=== PATIENT | male | born 1950 ===

== ENCOUNTER 2016-09-13 16:00 | Observation (INO) | payer OTHER ==
[2016-09-13 17:16] LABS: Glucose,Whole Blood 103 mg/dL (75-99)
[2016-09-13 17:44] LABS: Basophils % (A) 0 %; CH 29.8; CHCM 33.7; Eosinophils % (A) 0 %; HCT 44.5 % (39.0-53.0); HDW 2.55; HGB 14.7 gm/dL (13.0-17.5); Luc # (Auto) 0.11; Luc % (Auto) 2; Lymphocytes # (A) 1.3 k/uL (1.0-4.8); Lymphocytes % (A) 21 %; MCH 29.3 pg (25.0-35.0); MCHC 32.9 g/dL (31.0-37.0); MCV 88.9 fL (80.0-100.0); Mean Platelet Volume 9.2; Monocytes # (A) 0.3 k/uL (0-1.0); Monocytes % (A) 4 %; Neutrophils # (A) 4.4 k/uL (1.3-7.7); Neutrophils % (A) 73 %; RBC 5.01 m/uL (4.30-5.90); RDW 14.7 % (11.5-15.5); WBC 6.1 k/uL (3.8-10.6); WBC (Perox) 6.52
[2016-09-13 17:54] LABS: ALT 37 U/L (21-72); AST 20 U/L (17-59); Alkaline Phosphatase 87 U/L (38-126); Anion Gap 13 mmol/L; Blood Urea Nitrogen 13 mg/dL (9-20); Calcium 9.2 mg/dL (8.4-10.2); Carbon Dioxide 23 mmol/L (22-30); Chloride 104 mmol/L (98-107); Glucose 109 mg/dL (74-99); Non-African American GFR(MDRD) >60 (>60 ml/min/1.73 sqM); Potassium 4.2 mmol/L (3.5-5.1); Sodium 140 mmol/L (137-145); Total Protein 6.8 g/dL (6.3-8.2)
[2016-09-13] MEDS ORDERED: 0.9% NACL WITH KCL 20 MEQ/L 1,000 ML IV SCH (18:00)
[2016-09-13] MEDS ORDERED: ENOXAPARIN 40 MG/0.4 ML SYRINGE SQ STA (18:04)
[2016-09-13 18:06] LABS: Creatine Kinase 69 U/L (55-170)
[2016-09-13] MEDS ORDERED: ACETAMINOPHEN TAB 325 MG TAB PO PRN (18:12)
[2016-09-13 18:19] LABS: Creatine Kinase MB 0.4 ng/mL (0.0-2.4); Troponin I <0.012 ng/mL (0.000-0.034)
[2016-09-13] MEDS: HYDROcodone/APAP 5-325MG 1 EACH TAB PO PRN (19:03)
[2016-09-13] MEDS ORDERED: LIDOCAINE 4% CREAM 5 GM TUBE TOPICAL PRN (20:25)
[2016-09-13 20:51] LABS: Glucose,Whole Blood 106 mg/dL (75-99)
[2016-09-13] MEDS: ACYCLOVIR 800 MG TAB PO SCH (21:34)
[2016-09-13] MEDS ORDERED: TEMAZEPAM 15 MG CAP PO PRN (21:54)
[2016-09-13] MEDS ORDERED: ALPRAZolam 0.25 MG TAB PO PRN (21:54)
[2016-09-13] MEDS ORDERED: HYDROcodone/APAP 5-325MG 1 EACH TAB PO PRN (21:54)
[2016-09-13 23:34] LABS: Creatine Kinase 71 U/L (55-170)
[2016-09-13 23:47] LABS: Creatine Kinase MB 0.4 ng/mL (0.0-2.4); Troponin I <0.012 ng/mL (0.000-0.034)
[2016-09-14] MEDS: ACYCLOVIR 800 MG TAB PO SCH ×4 (00:33→15:25)
[2016-09-14] MEDS: HYDROcodone/APAP 5-325MG 1 EACH TAB PO PRN ×3 (00:34→11:49)
[2016-09-14 05:43] LABS: Basophils % (A) 1 %; CHCM 33.8; Eosinophils # (A) 0.1 k/uL (0-0.7); Eosinophils % (A) 2 %; HCT 40.5 % (39.0-53.0); HDW 2.52; HGB 13.3 gm/dL (13.0-17.5); Luc # (Auto) 0.16; Luc % (Auto) 3; Lymphocytes # (A) 1.8 k/uL (1.0-4.8); Lymphocytes % (A) 36 %; MCH 29.4 pg (25.0-35.0); MCHC 32.9 g/dL (31.0-37.0); MCV 89.2 fL (80.0-100.0); Mean Platelet Volume 10.1; Monocytes # (A) 0.3 k/uL (0-1.0); Monocytes % (A) 6 %; Neutrophils # (A) 2.7 k/uL (1.3-7.7); Neutrophils % (A) 53 %; RBC 4.54 m/uL (4.30-5.90); RDW 14.7 % (11.5-15.5); WBC 5.1 k/uL (3.8-10.6); WBC (Perox) 5.41
[2016-09-14 06:04] LABS: ALT 30 U/L (21-72); AST 34 U/L (17-59); Alkaline Phosphatase 73 U/L (38-126); Anion Gap 7 mmol/L; Blood Urea Nitrogen 14 mg/dL (9-20); Calcium 8.9 mg/dL (8.4-10.2); Carbon Dioxide 26 mmol/L (22-30); Chloride 106 mmol/L (98-107); Glucose 93 mg/dL (74-99); Non-African American GFR(MDRD) >60 (>60 ml/min/1.73 sqM); Potassium 4.4 mmol/L (3.5-5.1); Sodium 139 mmol/L (137-145); Total Bilirubin 0.9 mg/dL (0.2-1.3)
[2016-09-14 06:07] LABS: Creatine Kinase 83 U/L (55-170)
[2016-09-14 06:19] LABS: Creatine Kinase MB 0.4 ng/mL (0.0-2.4); Troponin I <0.012 ng/mL (0.000-0.034)
[2016-09-14 06:42] LABS: Glucose,Whole Blood 86 mg/dL (75-99)
[2016-09-14] MEDS ORDERED: PANTOPRAZOLE 40 MG TABLET PO SCH (07:30)
[2016-09-14 08:53] VITALS: RESP 16
[2016-09-14] MEDS ORDERED: ENOXAPARIN 40 MG/0.4 ML SYRINGE SQ SCH (09:00)
--- NOTE | 2016-09-14 09:22 | HP ---
The chief complaints are chest pain. HISTORY OF PRESENT ILLNESS: A 65-year-old gentleman with the past medical history of multiple medical problems including history of GERD, sleep apnea, history of disc surgery, being followed by primary physician in [place], also include camping in [place]. The patient was transferred to [facility] with complaints of chest pain. The pain was mainly in the left side of the chest and also radiating to the upper part of the abdomen. The patient also had shingles on the left side of the chest, especially in the back. There no history of fever, rigors or chills. No history of headache, loss of consciousness. The patient's home base is [place]. PAST MEDICAL HISTORY: History of GERD, sleep apnea, history of disc surgery. Medications prior to admission are none. FAMILY HISTORY: History of myocardial infarction in the family. SOCIAL HISTORY: No history of smoking, no history of alcohol intake. REVIEW OF SYSTEMS: ENT: No diminished hearing or diminished vision. CARDIOVASCULAR SYSTEM: As mentioned earlier. GI: No nausea. : No dysuria. NERVOUS SYSTEM: No numbness or weakness. ALLERGY/IMMUNOLOGY: No asthma or hayfever. MUSCULOSKELETAL: As mentioned earlier. ENDOCRINE: Negative. CONSTITUTIONAL: Negative. DERMATOLOGY: As mentioned earlier. RHEUMATOLOGY: Negative. PSYCHIATRY: Negative. PHYSICAL EXAM: Patient alert and oriented x3. Pulse is 88, blood pressure 160/82, respiration 16, temperature 97.4, pulse ox 98% on room air. HEENT: Conjunctivae normal. NECK: No jugular venous distension. RESPIRATORY: Breath sounds diminished at the bases, no rhonchi, no crackles. ABDOMEN: Soft, nontender, no mass palpable. LEGS: No edema, no swelling. NERVOUS SYSTEM: Higher functions as mentioned, moves all 4 limbs, no focal motor deficits. LYMPHATICS: No lymph node enlargement in the neck, groin or axillae. SKIN: Herpes zoster rash at D5-6. The labs are WBC 6.1, platelets 148, troponins negative. Glucose 109. IMPRESSION: 1. Left-sided chest pain, rule out myocardial infarction, coronary artery disease. 2. Left-sided herpes zoster D6-7. 3. Mild thrombocytopenia. 4. Increased random blood sugar. 6 History of gastroesophageal reflux disease. 7. Sleep apnea. 8. History of ruptured disc. 9. Family history of coronary artery disease. 10. History of back surgery and degenerative joint disease. 11. FULL CODE. RECOMMENDATION: In this 65-year-old gentleman who presented with multiple complex medical issues, will monitor the patient closely, continue with the current medication and symptomatic treatment. Otherwise, at this time I would recommend continue with the iron sulfate protocol. Otherwise, Cardiology consultation, n.p.o. past midnight. Pain medications, prognosis guarded because of multiple complex medical issues. Further recommendations to follow. See orders for further details. Possible stress test. Repeat labs will be ordered in the morning. Discussed with the patient and understands and agrees. SPENCER
--- NOTE | 2016-09-14 09:45 | XR ---
EXAMINATION TYPE: XR chest 1V DATE OF EXAM: 09/14/2016 COMPARISON: NONE HISTORY: Chest pain TECHNIQUE: Single frontal view of the chest is obtained. FINDINGS: There is no focal air space opacity, pleural effusion, or pneumothorax seen. The cardiac silhouette size is within normal limits. The osseous structures are intact. IMPRESSION: No acute cardiopulmonary process.
--- NOTE | 2016-09-14 10:36 | P.CRDCN ---
History of Present Illness Consult date: 09/14/16 Requesting physician: Sukhwinder Jones Consult reason: chest pain Chief complaint: Chest pain History of present illness: This is a 65-year-old gentleman with no prior documented history of hypertension no hyperlipidemia no diabetes, nonsmoker, no family history of premature coronary artery disease, history of GERD, sleep apnea who was transferred here from [facility]. Patient actually lives in [place] and is here camping in [place]. Patient had apparently presented there with symptoms of left-sided chest pain which radiated around to his back area. Patient was diagnosed there with shingles, he was transferred here to [facility] for further cardiac evaluation. Patient does state that he had the shingles vaccine 4 years ago. EKG this morning shows a normal sinus rhythm with no acute changes. WBC 5.1, hemoglobin 13.3, platelet count 119. Potassium 4.4, BUN 14, creatinine 1.1. Troponins have been negative 3. Blood pressure on arrival here 166/80 with a heart rate in the 80s, 98% on room air. Chest x-ray does not reveal any acute cardiopulmonary process. Time of my examination this morning, patient is complaining of pain in the left chest area with radiation around to the back, in the same area where the herpes zoster's rash is noted. Past Medical History Past Medical History: GERD/Reflux, Sleep Apnea/CPAP/BIPAP Additional Past Medical History / Comment(s): ruputerd disc, no cpap machine- insurance did'nt pay for it.shingles(currently) History of Any Multi-Drug Resistant Organisms: None Reported Past Surgical History: Back Surgery Additional Past Surgical History / Comment(s): back sx-l5 d/t ruptured dics, 1971, reconstructive sx lt shoulder d/t rugby accident.rt knee torn acl repair then 2nd sx , lt rotator cuff, egd, barium swallow. Past Anesthesia/Blood Transfusion Reactions: Motion Sickness Smoking Status: Never smoker - Past Family History Mother Family Medical History: Myocardial Infarction (ND) Father Family Medical History: Coronary Artery Disease (CAD) Additional Family Medical History / Comment(s): 5 vessel cabg, prostate cancer and prostate cancer. Medications and Allergies Home Medications Medication Instructions Recorded Confirmed Type No Known Home Medications [No 09/13/16 09/13/16 History Known Home Medications] Allergies Allergy/AdvReac Type Severity Reaction Status Date / Time No Known Allergies Allergy Verified 09/13/16 17:17 Physical Exam Vitals: Vital Signs Temp Pulse Pulse Pulse Resp BP Pulse Ox 09/14/16 08:00 97 F L 68 16 129/77 97 09/14/16 04:00 97.1 F L 68 68 18 142/79 98 09/14/16 00:00 97.3 F L 65 65 17 139/74 97 09/13/16 20:00 97.1 F L 83 83 18 132/82 94 L 09/13/16 16:00 97.4 F L 88 16 166/80 98 Intake and Output 09/13/16 09/14/16 09/14/16 22:59 06:59 14:59 Intake Total 236 540 Output Total 600 Balance -364 540 Intake: Intake, IV Titration 300 Amount 0.9% NaCl with KCl 20 Meq 300 /l 1,000 ml @ 50 mls/hr IV .Q20H VERONICA Rx#: [id number] Oral 236 240 Output: Urine 600 Other: # Voids 2 Weight 102.5 kg 102.6 kg PHYSICAL EXAMINATION: HEENT: Head is atraumatic, normocephalic. Pupils equal, round. Neck is supple. There is no elevated jugular venous pressure. HEART EXAMINATION: Heart S1, S2 normal. No murmur or gallop heard. CHEST EXAMINATION: Lungs are clear to auscultation and precussion. No chest wall tenderness is noted on palpation or with deep breathing. ABDOMEN: Soft, nontender. Bowel sounds are heard. No organomegaly noted. EXTREMITIES: 2+ peripheral pulses with no evidence of peripheral edema and no calf tenderness noted. NEUROLOGIC patient is awake, alert and oriented -3. Herpes zoster rash noted at the left chest and left posterior back area . Results 09/14/16 05:33 09/14/16 05:33 Cardiac Enzymes 09/13/16 09/13/16 09/13/16 Range/Units 17:31 17:31 23:01 AST 20 (17-59) U/L CK-MB (CK-2) 0.4 0.4 (0.0-2.4) ng/mL Troponin I <0.012 <0.012 (0.000-0.034) ng/mL 09/14/16 09/14/16 Range/Units 05:33 05:33 AST 34 (17-59) U/L CK-MB (CK-2) 0.4 (0.0-2.4) ng/mL Troponin I <0.012 (0.000-0.034) ng/mL CBC 09/13/16 09/14/16 Range/Units 17:31 05:33 WBC 6.1 5.1 (3.8-10.6) k/uL RBC 5.01 4.54 (4.30-5.90) m/uL Hgb 14.7 13.3 (13.0-17.5) gm/dL Hct 44.5 40.5 (39.0-53.0) % Plt Count 148 L 119 L (150-450) k/uL Comprehensive Metabolic Panel 09/13/16 09/14/16 Range/Units 17:31 05:33 Sodium 140 139 (137-145) mmol/L Potassium 4.2 4.4 (3.5-5.1) mmol/L Chloride 104 106 (98-107) mmol/L Carbon Dioxide 23 26 (22-30) mmol/L BUN 13 14 (9-20) mg/dL Creatinine 1.00 1.12 (0.66-1.25) mg/dL Glucose 109 H 93 (74-99) mg/dL Calcium 9.2 8.9 (8.4-10.2) mg/dL AST 20 34 (17-59) U/L ALT 37 30 (21-72) U/L Alkaline Phosphatase 87 73 (38-126) U/L Total Protein 6.8 6.0 L (6.3-8.2) g/dL Albumin 4.2 3.7 (3.5-5.0) g/dL Current Medications Generic Name Dose Route Start Last Admin Trade Name Freq PRN Reason Stop Dose Admin Acetaminophen 650 mg 09/13/16 18:12 Tylenol Tab PO Q4HR PRN Fever and/ or MILD Pain Hydrocodone Bitart/Acetaminophen 1 each 09/13/16 18:13 09/14/16 06:20 [place] 5-325 PO 1 each Q6HR PRN Administration MODERATE Pain Hydrocodone Bitart/Acetaminophen 1 each 09/13/16 21:54 [place] 5-325 PO Q6HR PRN Pain Acyclovir 800 mg 09/13/16 20:00 09/14/16 06:19 Zovirax PO 800 mg 5XD VERONICA Administration Alprazolam 0.25 mg 09/13/16 21:54 09/14/16 00:33 Xanax PO 0.25 mg TID PRN Administration Anxiety Enoxaparin Sodium 40 mg 09/14/16 09:00 09/14/16 08:06 Lovenox SQ 40 mg DAILY VERONICA Administration Potassium Chloride/Sodium Chloride 1,000 mls @ 50 mls/hr 09/13/16 18:00 09/13 17:32 Ns-Kcl 20 Meq/L Iv Solution IV 50 mls/hr .Q20H VERONICA Administration Lidocaine HCl 1 applic 09/13/16 20:25 09/14/16 00:34 Lmx 4 TOPICAL 1 applic Q6HR PRN Administration Pain Pantoprazole Sodium 40 mg 09/14/16 07:30 09/14/16 06:20 Protonix PO 40 mg AC-[id number] VERONICA Administration Temazepam 15 mg 09/13/16 21:54 Restoril PO HS PRN Insomnia Intake and Output 09/13/16 09/14/16 09/14/16 22:59 06:59 14:59 Intake Total 236 540 Output Total 600 Balance -364 540 Intake: Intake, IV Titration 300 Amount 0.9% NaCl with KCl 20 Meq 300 /l 1,000 ml @ 50 mls/hr IV .Q20H VERONICA Rx#: [id number] Oral 236 240 Output: Urine 600 Other: # Voids 2 Weight 102.5 kg 102.6 kg 09/14/16 05:33 09/14/16 05:33 EKG Interpretations (text) EKG shows normal sinus rhythm with no acute changes. Assessment and Plan Plan: Assessment and plan #1 symptoms of left-sided chest pain with radiation to the back. Evidence of herpes zoster rash. Patient currently on treatment for shingles. Troponins negative 3. EKG shows normal sinus rhythm with nonspecific changes in the inferior leads. #2 cardiac risk factors negative for hypertension, no diabetes, no hyperlipidemia, patient is a nonsmoker. #3 GERD Plan We will request an echocardiogram with Doppler study be performed. We will also discontinue the Lanoxin.. Patient's pain seems to be centrally located in the same area as shingles, if echo is normal would recommend outpatient stress testing. Further recommendations to follow. DNP note has been reviewed, I agree with a documented findings and plan of care. Patient was seen and examined.
[2016-09-14 11:26] LABS: Glucose,Whole Blood 95 mg/dL (75-99)
--- NOTE | 2016-09-14 12:57 | ECHOF ---
Referral Reason:chest pain MEASUREMENTS -------- HEIGHT: 182.9 cm WEIGHT: 102.5 kg BP: 129/77 IVSd: 1.2 cm (0.6 - 1.1) LVIDd: 4.0 cm (3.9 - 5.3) LVPWd: 1.0 cm (0.6 - 1.1) IVSs: 1.2 cm LVIDs: 3.1 cm LVPWs: 1.4 cm LA Diam: 3.5 cm (2.7 - 3.8) LAESV Index (A-L): 17.87 ml/m Ao Diam: 3.1 cm (2.0 - 3.7) AV Cusp: 1.8 cm (1.5 - 2.6) LA Diam: 3.7 cm (2.7 - 3.8) MV EXCURSION: 14.924 mm (> 18.000) MV EF SLOPE: 41 mm/s (70 - 150) EPSS: 1.0 cm MV E Wilfredo: 0.44 m/s MV DecT: 240 ms MV A Wilfredo: 0.80 m/s MV E/A Ratio: 0.55 RAP: 5.00 mmHg RVSP: 23.54 mmHg FINDINGS -------- Sinus rhythm. This was a technically adequate study. There is mild concentric left ventricular hypertrophy. Overall left ventricular systolic function is normal with, an EF between 55 - 60 %. The right ventricle is normal in size. Normal LA size by volume 22+/-6 ml/m2. The right atrial size is normal. There is mild aortic valve sclerosis. There is no evidence of aortic regurgitation. Mild mitral annular calcification present. Mild mitral regurgitation is present. Mild tricuspid regurgitation present. There is no evidence of pulmonary hypertension. The right ventricular systolic pressure, as measured by Doppler, is 23.54mmHg. There is no pulmonic regurgitation present. The aortic root size is normal. There is no pericardial effusion. CONCLUSIONS -------- 1. There is mild concentric left ventricular hypertrophy. 2. Overall left ventricular systolic function is normal with, an EF between 55 - 60 %. 3. There is mild aortic valve sclerosis. 4. Mild mitral annular calcification present. 5. Mild mitral regurgitation is present. 6. Mild tricuspid regurgitation present. 7. There is no evidence of pulmonary hypertension. 8. The right ventricular systolic pressure, as measured by Doppler, is 23.54mmHg. PIGMENT GRINDER: Josselin Burk RDCS
[2016-09-14 13:01] VITALS: BP 141/84; PULSE 65; TEMP 97.1
--- NOTE | 2016-09-20 09:29 | DS ---
FINAL DIAGNOSES: 1. Left severe chest pain, possibly musculoskeletal, myocardial infarction ruled out. 2. Left-sided herpes zoster at D6/7. 3. Mild thrombocytopenia. 4. Increased random blood sugar. 5. History of gastroesophageal reflux disease. 6. FULL CODE. DISCHARGE DISPOSITION: The patient will be discharged in a stable condition with guarded prognosis. HISTORY OF PRESENT ILLNESS: This is a 65-year-old gentleman with a past medical history of multiple medical problems admitted with left-sided chest pain. The patient had shingles, myocardial infarction ruled out. Cardiology recommends outpatient follow up. A 2D echo was done which showed ejection fraction of 55% to 60%. On exam, vitals are stable. CARDIOVASCULAR SYSTEM: S1, S2. ABDOMEN: Soft. NERVOUS SYSTEM: No focal deficits. DISCHARGE ADVICE: 1. Diet is cardiac. 2. Activity limited until followup. 3. Follow up with primary physician in 2 to 3 days for further evaluation. 4. Follow with Cardiology as recommend. Medications are: 1. Tylenol 650 p.o. q.4 p.r.n. 2. Zovirax 800 mg 5 times daily. 3. [place] 5 mg q.6 p.r.n. Once again, the patient will be discharged in a stable condition with guarded prognosis. MTDD
== END 2016-09-14 16:35 | disposition home or self-care (01) ==
LOC: 6SEL 16:00
PROVIDERS: ADMIT Internal Medicine; ATTEND Internal Medicine
DX: R07.89 Other chest pain (principal); K21.9 Gastro-esophageal reflux disease without esophagitis; G47.30 Sleep apnea, unspecified; B02.9 Zoster without complications; D69.6 Thrombocytopenia, unspecified; M19.90 Unspecified osteoarthritis, unspecified site; M54.9 Dorsalgia, unspecified; Z99.89 Dependence on other enabling machines and devices; Z82.49 Family history of ischemic heart disease and other diseases of the circulatory system
CPT/HCPCS: 96372 ×2; 93306; 80053 ×2; 82550 ×2; 82553 ×2; 84484 ×2; 85025 ×2; 71010; G0378 ×2; G0379; J1650 ×2